=== PATIENT | female | born 1960 | race Caucasian/White ===

== ENCOUNTER → 2021-07-19 | Outpatient (CLI) | payer OTHER ==
--- NOTE | 2021-07-25 16:54 | RAD ---
Bilateral digital screening 2-D and 3-D (digital breast tomosynthesis) mammogram: Reason for examination: Routine screening. Comparison: Mammogram from 05/28/2018. Interpretation was made with the benefit of CAD. FINDINGS: Breast density: Category A. Breast tissue is almost entirely fatty. No suspicious breast mass, malignant appearing calcifications, or architectural distortion is seen. T here has been no significant change since the previous mammogram. IMPRESSION: No evidence of malignancy. Assessment: BI-RADS 1. Negative. Recommendation: Routine screening mammograms. The patient will receive a letter with the results in the mail. Patient information will be entered i nto the mammography reminder system with a target recall date for the next mammogram. A reminder soraida er will be generated. Electronically signed by: Elizabet Booth MD (07/25/2021 4:51 PM) [id number]
== END ==
LOC: MAMMO 11:19
PROVIDERS: ATTEND Family Medicine
DX: Z12.31 Encounter for screening mammogram for malignant neoplasm of breast (principal)
CPT/HCPCS: 77063; 77067

== ENCOUNTER 2021-10-24 18:34 | Emergency (ER) | payer OTHER ==
[~2021-10-24] VITALS: Ht 160 cm; Wt 90.6 kg
--- NOTE | 2021-10-24 19:48 | PHYS DOC ---
Past History Past Medical History: High Cholesterol, Hypertension (QUINTON YUNG) Past Surgical History: Other Additional Past Surgical Histo: right knee (QUINTON YUNG) General Adult EDM: Chief Complaint: MULTIPLE COMPLAINTS HPI: HPI: Patient is a 61 year old female with past medical history of hypertension, hyperlipidemia who presents with shortness of breath that began on Thursday. For the past 5 days, patient states she has been increasingly short of breath. She also has a productive cough of white mucus. Patient reports pleuritic chest pain and bilateral lateral chest wall pain associated with her cough and deep inspiration. Patient denies fever, chills, generalized weakness, chest pressure , palpitations. (QUINTON YUNG) Review of Systems: Review of Systems: Constitutional: See HPI Eyes: Denies change in visual acuity, visual field deficits or discharge HENT: Denies ear pain, nasal congestion or sore throat Respiratory: See HPI Cardiovascular: See HPI GI: Denies abdominal pain, nausea, vomiting, bloody stools or diarrhea : Denies dysuria or hematuria Musculoskeletal: Denies back pain or joint pain Integument: Denies rash or other skin lesion Neurologic: Denies headache, focal weakness or sensory changes (QUINTON YUNG) Current Medications: Current Meds: Current Medications Medications (Trade) Dose Ordered Sig/Jasmin Start Time Stop Time Status Last Admin Dose Admin Albuterol Sulfate (Ventolin Hfa Inhaler) 2 puff 1X ONCE 10/24/21 19:15 10/24/21 19:16 DC (QUINTON YUNG) Allergies: Allergies: Allergies Coded Allergies Type Severity Reaction Last Updated Verified No Known Drug Allergies 10/24/21 No (QUINTON YUNG) Physical Exam: PE: Constitutional: Well developed, well nourished, non-toxic appearance, patient appears mildly short of breath. HENT: Normocephalic, atraumatic, bilateral external ears normal, nose normal. Eyes: EOMI, conjunctiva normal, no discharge. Neck: Normal range of motion, no stridor. Cardiovascular: Heart regular rate and rhythm, no apparent murmur. Lungs & Thorax: Patient does appear to have increased work of breathing, equal thoracic expansion, breath sounds diminished in the bases, wheezing heard when patient coughs. Skin: Warm, dry, no erythema, no rash, no cyanosis. Back: No step-off, no tenderness. Extremities: No tenderness, no cyanosis, no clubbing, ROM intact, no edema. Neurologic: Alert and oriented x4, no focal deficits noted. (QUINTON YUNG) Current Patient Data: Labs: Laboratory Tests Test 10/24/21 19:21 Influenza Type A (Rapid) Negative (NEGATIVE) Influenza Type B (Rapid) Negative (NEGATIVE) Vital Signs: Vital Signs Date Time Temp Pulse Resp B/P (MAP) Pulse Ox O2 Delivery O2 Flow Rate FiO2 10/24/21 19:26 85 18 116/81 (93) 95 Room Air 10/24/21 19:03 97.9 (QUINTON YUNG) Radiology/Procedures: Radiology/Procedures: PROCEDURE: CHEST AP ONLY EXAM: CHEST 1 VIEW History: Shortness of breath, pleuritic pain COMPARISON: None available. TECHNIQUE: Single portable radiograph of the chest FINDINGS: The cardiac silhouette is unremarkable. Mild right lung base airspace opacity likely atelectasis or infiltrate. The costophrenic sulci are clear and well demarcated. IMPRESSION: Mild right lung base airspace opacity likely atelectasis or infiltrate. Electronically signed by: Walter Navarro MD (10/24/2021 8:04 PM) [id number] (QUINTON YUNG) Heart Score: C/O Chest Pain: N/A (QUINTON YUNG) Course & Med Decision Making: Course & Med Decision Making Pertinent Labs and Imaging studies reviewed. (See chart for details) Patient is a 61-year-old female with 5-day history of shortness of breath and productive cough. Patient now has chest wall as well as pleuritic pain. History and presentation concerning for bronchitis versus pneumonia. Work-up today will include chest x-ray and swabs for influenza A&B as well as COVID-19. Patient is afebrile and nontoxic-appearing, labs deferred. Chest x-ray reveals mild right lung base opacity. Will treat for community- acquired pneumonia as well as bronchitis. Patient questions were answered. Return precautions were provided. Patient provided with work note as well. Patient and her understand are agreeable to discharge plan. (QUINTON YUNG) Dragon Disclaimer: Dragon Disclaimer: This electronic medical record was generated, in whole or in part, using a voice recognition dictation system. (QUINTON YUNG) Departure Departure: Impression: Primary Impression: Acute bronchitis Qualified Codes: J20.9 - Acute bronchitis, unspecified Additional Impression: CAP (community acquired pneumonia) Qualified Codes: J18.9 - Pneumonia, unspecified organism Disposition: 01 HOME / SELF CARE / HOMELESS Condition: STABLE Referrals: YOSVANY SPICER (PCP) Patient Instructions: Acute Bronchitis, [id number], Incentive Spirometer, Pneumonia, Adult, [id number] Additional Instructions: Follow the following supportive treatment measures: - Cool mist humidifier with plain water at bedside while you sleep - Mucinex (guaifenesin) per box instructions - Tessalon perles (benzonatate) for cough, especially at night before bed - Alternate ibuprofen and acetaminophen every four hours for body aches/fever/headache - Use the incentive spirometer 5 times per day with 10 deep breaths each time If antibiotics were prescribed, take them as directed. You have been tested for or diagnosed with COVID-19 infection. It is an infection caused by a new type of coronavirus. COVID-19 will cause cold-like or mild flu symptoms in most. It can cause more severe symptoms like problems breathing in some. There is no treatment for COVID-19. The body will clear the infection over time. Self-care will help to ease discomfort. Steps to Take: - Rest as needed. - Choose healthy foods including fruits and vegetables. Drink water throughout the day. - Get plenty of sleep each night. - If you smoke, try to quit. It may ease breathing. - Avoid alcohol. - Keep Others Healthy - The virus can spread to others. Droplets are released every time you sneeze or cough. The droplets can get into the mouth, nose, or eyes of people near you and lead to infection. To lower the chances of spreading COVID-19 to others: Stay at home until your doctor has said it is safe to leave. If you tested positive this will mean staying isolated until both of the following are true: - At least 10 days have passed since the start of illness. - You are free of fever for at least 72 hours without the use of medicine. During this time: - Avoid public areas, events, or transportation. Do not return to work or school until your doctor has said it is safe to do so. - Call ahead if you need to go to a medical center. Let them know you may have COVID-19. It will help them guide you where to go. They may also ask you to wear a facemask when you come to the office. - If you call for emergency medical services, let them know you may have COVID- 19. While at home: - Try to avoid close contact with others. Stay about 6 feet away. - If possible, spend most of your time in a separate room from others. - Use a face mask if you will be in close contact with others such as sharing a room or vehicle. - Have someone wipe down common surfaces in the home. Use household loading supervisor every day on areas like doorknobs, counters, or sinks. - Cough or sneeze into a tissue. Throw the tissue away right after use. If a tissue is not available, cough or sneeze into your elbow. - Wash your hands often. Wash them after sneezing or coughing. Use soap and water and wash or at least 20 seconds. Alcohol based hand light cleaner can be used if soap and water is not available. - Do not prepare food for others. Avoid sharing personal items like forks, spoons, or toothbrushes. - Avoid close contact with pets while you are sick. There is no evidence of the virus passing to pets. This is a safety step until more is known about this virus. - Isolation can be frustrating. Social interaction can help. Keep in touch with friends and family through phone and tech options. You can still interact with others in your home, just keep a safe distance of about 6 feet. Follow-up: - Your doctors office will check in with you to see if there are any changes in your health. - You may be asked to keep track of symptoms to share with them. They will also let you know when you are clear to be in public again. Contact your doctor if your recovery is not going as you expect. Get emergency care if you have problems such as: - Trouble breathing with oxygen saturation <90% - Nonstop chest pain or pressure - Changes in awareness, confusion, or problems waking - Lips or face have bluish color - Worsening of symptoms If you think you have an emergency, call for emergency medical services right away. As taken from [facility] Azithromycin (AZITHROMYCIN TABLET) 250 Mg Tablet 1 PKG PO DAILY for CAP for 4 Days, #4 TAB 0 Refills Take 1 tablet by mouth daily for days 2-5. Prov: QUINTON YUNG 10/24/21 Brijesh Disclaimer This chart was dictated in whole or in part using Voice Recognition software in a busy, high-work load, and often noisy Emergency Department environment. It may contain unintended and wholly unrecognized errors or omissions. (KADEEM RHOADES MD) Attending Signature Attending Signature I have participated in the care of this patient and I have reviewed and agree with all pertinent clinical information above including history, exam, and recommendations. (KADEEM RHOADES MD) QUINTON YUNG Oct 24, 2021 19:47 KADEEM RHOADES MD Oct 25, 2021 03:30
[2021-10-24] MEDS: ALBUTEROL SULFATE 8GM INHALER. INH ONE (19:50)
[2021-10-24 20:02] LABS: INFLUENZA A PATIENT NEGATIVE (NEGATIVE); INFLUENZA B PATIENT NEGATIVE (NEGATIVE)
--- NOTE | 2021-10-24 20:06 | RAD ---
EXAM: CHEST 1 VIEW History: Shortness of breath, pleuritic pain COMPARISON: None available. TECHNIQUE: Single portable radiograph of the chest FINDINGS: The cardiac silhouette is unremarkable. Mild right lung base airspace opacity likely atele ctasis or infiltrate. The costophrenic sulci are clear and well demarcated. IMPRESSION: Mild right lung base airspace opacity likely atelectasis or infiltrate. Electronically signed by: Walter Navarro MD (10/24/2021 8:04 PM) [id number]
[2021-10-24] MEDS ORDERED: AZIT250T6 PO (20:29)
[2021-10-24] MEDS: AZITHROMYCIN 250 MG TABLET. PO ONE (20:37)
[2021-10-24] MEDS: KETOROLAC 60 MG/2 ML VIAL. IM ONE (20:38)
[2021-10-24 20:40] VITALS: BP 122/78
== END 2021-10-24 20:45 | disposition home or self-care (01) ==
LOC: ER 18:34
DX: J18.9 Pneumonia, unspecified organism (principal); J20.9 Acute bronchitis, unspecified; Z20.822 Contact with and (suspected) exposure to COVID-19; E78.00 Pure hypercholesterolemia, unspecified; I10 Essential (primary) hypertension
CPT/HCPCS: 71045; 87804; 94640; 96372; 99285; C9803; J1885; U0003; 94664